=== PATIENT | female | born 1950 | race Caucasian/White ===

== ENCOUNTER 2016-05-24 11:58 | Emergency (ER) | payer OTHER, MEDICARE ==
[~2016-05-24] VITALS: Ht 160 cm; Wt 77.1 kg
--- NOTE | 2016-05-24 12:25 | ED CARDIAC/CP/PALPITATIONS ---
History of Present Illness General Chief Complaint: Chest Pain Stated Complaint: CHEST PAIN Source: patient Exam Limitations: no limitations Vital Signs & Intake/Output Vital Signs & Intake/Output Vital Signs Date Time Temp Pulse Resp B/P Pulse O2 O2 Flow FiO2 Ox Delivery Rate 05/24 1315 58 20 129/76 95 Nasal 2.0L Cannula 05/24 1305 96 Room Air 05/24 1209 97.7 76 16 103/70 96 Room Air Allergies Coded Allergies: MDX - Cortisone (UNKNOWN 05/25/11) MDX - Penicillin (Penicillin) (UNKNOWN 05/25/11) MDX - Penicillin V (UNKNOWN 05/25/11) Triage Note: PT STATES SHE WAS TAKING MEDS FOR A COUGH 3 WEEKS AGO AND THIS AM SHE WAS FEELING CHEST PAIN THAT RADIATED TO HER LEFT ARM AND NECK. PT ALSO STATES SHE WAS SOB AND DIAPHORETIC. PT DENIES CHEST PAIN AT THIS TIME. Triage Nurses Notes Reviewed? yes Onset: Abrupt Duration: this morning Timing: single episode today Quality/Severity: severe Location: central Radiation: LEFT SHOULDER Activities at Onset: none Aspirin Today: no aspirin today Associated Symptoms: diaphoresis, shortness of breath HPI: This is a 65-year-old female with history of hypothyroidism and fibro myalgia presented to the ER with chief complaint of chest pain radiating to her left shoulder this morning. Chest pain free at this time. She had cough and cold symptoms for the past 3 weeks. No fever or chills. She reported being short of breath and sweaty as well. No history of similar symptoms. Past History Travel History Traveled to [place] past 21 day No Medical History Any Pertinent Medical History? see below for history Neurological: FIBROMYALGIA Gastrointestinal: STOMACH ULCER Musculoskeletal: osteoarthritis Endocrine: hypothyroidism Surgical History Surgical History: non-contributory Psychosocial History What is your primary language Estonian Tobacco Use: Quit >30 days ago ETOH Use: denies use Illicit Drug Use: denies illicit drug use Family History Comment: FATHER ND IN 50'S MOTHER ND IN 80'S Hx Contributory? Yes Review of Systems Review of Systems Constitutional: Denies: chills, fever. EENTM: Reports: no symptoms. Respiratory: Reports: cough, short of breath. Cardiovascular: Reports: chest pain. GI: Denies: abdominal pain. Genitourinary: Denies: discharge, dysuria. Musculoskeletal: Reports: no symptoms. Skin: Reports: no symptoms. Neurological/Psychological: Reports: no symptoms. Hematologic/Endocrine: Denies: bruising, bleeding, polyuria, polydipsia. Immunologic/Allergic: Denies: splenectomy. All Other Systems: Reviewed and Negative Physical Exam Physical Exam General Appearance: well developed/nourished, alert, awake, anxious Head: atraumatic, normal appearance Eyes: Bilateral: normal appearance, PERRL, EOMI. Ears, Nose, Throat: normal pharynx, normal ENT inspection, hearing grossly normal Neck: normal inspection, supple, full range of motion Respiratory: normal breath sounds, chest non-tender, no respiratory distress Cardiovascular: regular rate/rhythm Peripheral Pulses: 2+ radial (R), 2+ radial (L) Gastrointestinal: normal bowel sounds, soft, non-tender Extremities: normal inspection, normal capillary refill, normal range of motion, no edema Neurologic/Psych: no motor/sensory deficits, awake, alert, oriented x 3 Skin: intact, normal color, warm/dry Core Measures ACS in differential dx? Yes ASA ordered for poss ACS? Yes-ordered Severe Sepsis Present: No Septic Shock Present: No Progress Differential Diagnosis: AMI, aortic dissection, atrial fibrillation, musculoskeletal pain, myocarditis, pericarditis, pneumonia, pneumothorax, PSVT, pulmonary embolism, PUD/GERD, sepsis, unstable angina Plan of Care: Orders Procedure Date/time Status Heart Healthy Diet 05/24 D Active TROPONIN LEVEL 05/24 1630 Complete EKG 05/24 1630 Active URINALYSIS 05/24 1307 Complete Telemetry/Automatic Outsole Cutter 05/24 1233 Active TROPONIN LEVEL 05/24 1233 Complete PARTIAL THROMBOPLASTIN TIME 05/24 1233 Complete PROTHROMBIN TIME 05/24 1233 Complete COMPREHENSIVE METABOLIC PANEL 05/24 1233 Complete CBC WITHOUT DIFFERENTIAL 05/24 1233 Complete B-TYPE NATRIURETIC PEP (BNP) 05/24 1233 Complete EKG 05/24 1159 Active Laboratory Tests 05/24/16 1623: Troponin I < 0.01 05/24/16 1310: Urinalysis LIGHT H, Urine Color STRAW, Urine Clarity CLEAR, Urine pH 6.5, Ur Specific [place] <= 1.005, Urine Protein NEG, Urine Ketones NEG, Urine Nitrite NEG, Urine Bilirubin NEG, Urine Urobilinogen 0.2, Ur Leukocyte Esterase NEG, Ur Microscopic SEDIMENT EXAMINED, Urine RBC RARE, Ur Epithelial Cells RARE, Urine Hemoglobin MOD H, Urine Glucose NEG 05/24/16 1235: Anion Gap 14, Estimated GFR > 60, BUN/Creatinine Ratio 22.5, Glucose 119 H, Calcium 9.0, Total Bilirubin 0.5, AST 29, ALT 42, Alkaline Phosphatase 115, Troponin I < 0.01, [id number]-[id number] Pept 139 H, Total Protein 7.4, Albumin 3.6 , Globulin 3.8, Albumin/Globulin Ratio 0.9 L, PT 12.1, INR 1.15, APTT 31, CBC w Diff NO MAN DIFF REQ, RBC 4.36, MCV 82.4, MCH 27.8, RDW 14.5, MPV 9.6, Gran % 58.9, Lymphocytes % 32.3, Monocytes % 6.0, Eosinophils % 2.1, Basophils % 0.7, Absolute Granulocytes 3.7, Absolute Lymphocytes 2.0, Absolute Monocytes 0.4, Absolute Eosinophils 0.1, Absolute Basophils 0, PUBS MCHC 33.7 05/24/2016 4:54:26 PM Isn't seen and evaluated by Dr. Collins in the emergency department. Repeat EKG is unchanged. Pending second troponin. If troponin is negative patient is pain-free since administration of aspirin. She is safe to follow-up according to Dr. Collins for outpatient stress testing by Dr. Alvarado. (FRANCY ARGUETA,HECTOR) Diagnostic Imaging: Viewed by Me: Radiology Read. Discussed w/RAD: Radiology Read. Initial ED EKG: NSR Repeat EKG: unchanged Rhythm Strip: normal sinus rhythm Comments: PATIENT: MYNOR AMAYA PRESENT AGE: 65 PATIENT ACCOUNT NO: [id number] : 50 LOCATION: [facility] ORDERING PHYSICIAN: HECTOR SEN MD SERVICE DATE: 05/24/16 EXAM TYPE: RAD - XRY-PORTABLE CHEST XRAY Addendum: The study is now compared to a chest radiograph from 01/28/2008. There is no interval change. Addendum Signed by: KRISTOFER WHALEY MD 05/24/16 1167 EXAMINATION: XR PORTABLE CHEST CLINICAL INFORMATION: Cough and chest pain. Rule out pneumonia. COMPARISON: Prior chest radiograph is not currently available for comparison. TECHNIQUE: Portable view of the chest was obtained. FINDINGS: Cardiac silhouette is at the upper limits of normal in size. The lung volumes are slightly decreased but clear without focal consolidation or atelectasis seen. No acute osseous abnormality. IMPRESSION: The heart is at the upper limits of normal in size. No evidence of pneumonia or pulmonary edema. DICTATED BY: KRISTOFER WHALEY MD DATE/TIME DICTATED:05/24/161303 HEALTH AND SAFETY TECH:JUNIOR DATE/TIME TRANSCRIBED:05/24/161303 CONFIDENTIAL, DO NOT COPY WITHOUT APPROPRIATE AUTHORIZATION. <Electronically signed in Other Vendor System> SIGNED BY: KRISTOFER WHALEY MD 05/24/16 1317 Departure Departure Time of Disposition: 1710 Disposition: HOME OR SELF CARE Condition: Stable Clinical Impression Primary Impression: Chest pain at rest Referrals: ISAMAR ESPARZA MD (PCP/Family) Hector ALVARADO MD Referred to [facility] as new patient No Additional Instructions: Call Dr. Alvarado's office tomorrow or Wednesday for follow-up appointment and stress testing. Take a daily baby aspirin. Return immediately to the ER for any chest pain, shortness of breath, back pain, neck pain or sweating. Departure Forms: Customer Survey General Discharge Information Critical Care Note Critical Care Note Critical Care Time: non-applicable
[2016-05-24 13:00] LABS: ABSOLUTE BASOPHIL COUNT 0 /CUMM (0.0-0.2); ABSOLUTE EOSINOPHIL COUNT 0.1 /CUMM (0.0-0.7); ABSOLUTE GRANULOCYTE CT 3.7 /CUMM (1.4-6.5); ABSOLUTE MONOCYTE COUNT 0.4 /CUMM (0.10-0.60); BASOPHIL % 0.7 % (0.0-2.0); EOSINOPHIL % 2.1 % (0-5); GRANULOCYTE % 58.9 % (42.2-75.2); HEMATOCRIT 35.9 % (37-47); MEAN CORPUSCULAR HGB 27.8 PG (27.0-31.0); MEAN CORPUSCULAR HGB CONC 33.7 G/DL (33.0-37.0); MEAN CORPUSCULAR VOLUME 82.4 FL (81.0-99.0); MEAN PLATELET VOLUME 9.6 FL (7.4-10.4); PLATELET COUNT 200 /CUMM (130-400); PT 12.1 SEC (9.4-12.5); PTT 31 SEC (25-37); RBC DISTRIBUTION WIDTH 14.5 % (11.5-14.5); RED BLOOD CELL CT 4.36 /CUMM (4.20-5.40); WHITE BLOOD CELL COUNT 6.2 /CUMM (4.8-10.8)
--- NOTE | 2016-05-24 13:17 | RADIOLOGY REPORT ---
EXAMINATION: XR PORTABLE CHEST CLINICAL INFORMATION: Cough and chest pain. Rule out pneumonia. COMPARISON: Prior chest radiograph is not currently available for comparison. TECHNIQUE: Portable view of the chest was obtained. FINDINGS: Cardiac silhouette is at the upper limits of normal in size. The lung volumes are slightly decreased but clear without focal consolidation or atelectasis seen. No acute osseous abnormality. IMPRESSION: The heart is at the upper limits of normal in size. No evidence of pneumonia or pulmonary edema.
[2016-05-24 17:15] VITALS: BP 126/73
--- NOTE | 2016-05-24 20:59 | Cons- Cardiology ---
General Information and HPI Consulting Request Date of Consult: 05/24/16 Requested By: Dian Mayfield MD Reason for Consult: Chest pain History of Present Illness: The patient is a 65-year-old female with history of hypothyroidism and fibromyalgia who presents with complaint of chest discomfort. She describes the discomfort as a 5/10 dull pain radiating from her left chest to her left shoulder. It began on the morning of her presentation, and lasted for few hours. She notes recent upper respiratory symptoms over the past few weeks. She notes mild shortness of breath and diaphoresis associated with the chest discomfort. She is now pain-free. No lightheadedness or dizziness. No palpitations. No nausea or vomiting. No syncope. Allergies/Medications Allergies: Coded Allergies: MDX - Cortisone (UNKNOWN 05/25/11) MDX - Penicillin (Penicillin) (UNKNOWN 05/25/11) MDX - Penicillin V (UNKNOWN 05/25/11) Current Medications: The patient is not currently taking medications. Review of Systems Review of Systems: No rash. No tremor. No melena. No syncope. All other systems are reviewed and are noted to be negative. Past History Travel History Traveled to [place] past 21 day No Medical History Neurological: FIBROMYALGIA Gastrointestinal: STOMACH ULCER Musculoskeletal: osteoarthritis Endocrine: hypothyroidism Surgical History Surgical History: none Family History Relations & Conditions If Any: FATHER Myocardial infarction MOTHER Myocardial infarction Psychosocial History ETOH Use: denies use Illicit Drug Use: denies illicit drug use Exam & Diagnostic Data Vital Signs and I&O Vital Signs Date Time Temp Pulse Resp B/P Pulse O2 O2 Flow FiO2 Ox Delivery Rate 05/24 1315 58 20 129/76 95 Nasal 2.0L Cannula 05/24 1305 96 Room Air 05/24 1209 97.7 76 16 103/70 96 Room Air Physical Exam: Gen: The patient is in no acute distress HEENT: Normal nose, ears, and oropharynx. Pupils equal bilaterally. Conjunctiva normal. Neck: Supple with no JVD, no masses, and no thyromegaly Lungs: Clear to auscultation with normal respiratory effort Heart: RRR, S1, S2, no murmurs. No peripheral edema, 2+ pulses in the lower extremities bilaterally Abdomen: Soft, nontender, no masses. No hepatomegaly. No splenomegaly Extremities: No clubbing or cyanosis. Normal muscle strength in the upper and lower extremities. Skin: Normal skin turgor with no skin ulcers or lesions noted. Neuro: Cranial nerves intact. Sensation intact Psych: Alert and oriented 3 with appropriate affect Labs/Pollo Results: 05/24/16 1623: Troponin I < 0.01 05/24/16 1310: Urinalysis LIGHT H, Urine Color STRAW, Urine Clarity CLEAR, Urine pH 6.5, Ur Specific [place] <= 1.005, Urine Protein NEG, Urine Ketones NEG, Urine Nitrite NEG, Urine Bilirubin NEG, Urine Urobilinogen 0.2, Ur Leukocyte Esterase NEG, Ur Microscopic SEDIMENT EXAMINED, Urine RBC RARE, Ur Epithelial Cells RARE, Urine Hemoglobin MOD H, Urine Glucose NEG 05/24/16 1235: Anion Gap 14, Estimated GFR > 60, BUN/Creatinine Ratio 22.5, Glucose 119 H, Calcium 9.0, Total Bilirubin 0.5, AST 29, ALT 42, Alkaline Phosphatase 115, Troponin I < 0.01, Gbv-C-Hkejhyqzqfm Pept 139 H, Total Protein 7.4, Albumin 3.6 , Globulin 3.8, Albumin/Globulin Ratio 0.9 L, PT 12.1, INR 1.15, APTT 31, CBC w Diff NO MAN DIFF REQ, RBC 4.36, MCV 82.4, MCH 27.8, RDW 14.5, MPV 9.6, Gran % 58.9, Lymphocytes % 32.3, Monocytes % 6.0, Eosinophils % 2.1, Basophils % 0.7, Absolute Granulocytes 3.7, Absolute Lymphocytes 2.0, Absolute Monocytes 0.4, Absolute Eosinophils 0.1, Absolute Basophils 0, PUBS MCHC 33.7 Diagnostic Data EKG Results EKG tracing is independently reviewed, and reveals normal sinus rhythm at 62 with premature atrial complex CXR Results Chest x-ray May 24, 2016: The heart is at the upper limits of normal in size. No evidence of pneumonia or pulmonary edema. Assessment/Plan Assessment/Plan 1. Hypothyroidism 2. Fibromyalgia 3. Chest pain, uncertain etiology. Myocardial infarction ruled out with negative troponin x2 plan: * Discharge to home. * Aspirin 81 milligrams daily. * Call with further chest pain. * Follow up with Dr. Johansen for re-evaluation and stress testing. Consult Acknowledgment - Thank you for your consult request.
== END 2016-05-24 17:18 ==
LOC: ERH 11:58
PROVIDERS: Emergency Medicine
DX: R07.9 Chest pain, unspecified (principal)
CPT/HCPCS: 81001; 93005; 93010

== ENCOUNTER 2016-09-12 13:58 | Emergency (ER) | payer OTHER, MEDICARE ==
[~2016-09-12] VITALS: Ht 160 cm; Wt 79.4 kg
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
[2016-09-12] MEDS ORDERED: ULTRAM50 M1 PO (15:44)
[2016-09-12] MEDS ORDERED: BACLOFEN10 M1 PO (15:44)
[2016-09-12 16:01] VITALS: BP 140/82
== END 2016-09-12 16:25 ==
LOC: ERH 13:58
DX: S16.1XXS Strain of muscle, fascia and tendon at neck level, sequela (principal); T14.8 Other injury of unspecified body region; M25.572 Pain in left ankle and joints of left foot; R07.9 Chest pain, unspecified; V49.50XA Passenger injured in collision with unspecified motor vehicles in traffic accident, initial encounter; Y93.9 Activity, unspecified; Y92.9 Unspecified place or not applicable
CPT/HCPCS: 72170; 73610-LT